=== PATIENT | male | born 1950 | race Caucasian/White ===

== ENCOUNTER 2017-09-26 12:21 | Inpatient (IN) | payer MEDICARE, OTHER ==
[~2017-09-26 12:21] MED LIST: AMIODARONE 150 MG INJ; AMIODARONE 900 MG INJ
[2017-09-26] MEDS: AMIODARONE 150MG/D5W BOLUS 100 ML IV ×2 (12:44→12:52)
[2017-09-26 12:57] LABS: ADD MAN DIFF? NO
[2017-09-26 13:01] LABS: WHITE BLOOD COUNT 15.2 10^3/ul (4.8-10.8)
[2017-09-26 13:01] LABS: ABNORMAL IP MESSAGE 1; BASOPHIL # 0.1 10^3/ul (0.0-0.1); BASOPHILS % 0.5 % (0.0-2.0); EOSINOPHILS # 0.1 10^3/ul (0.0-0.5); EOSINOPHILS % 0.9 % (0.0-7.0); HEMATOCRIT 41.6 % (42.0-52.0); LYMPHOCYTES # 4.5 10^3/ul (0.8-2.9); LYMPHOCYTES % 29.4 % (15.0-51.0); MEAN CORPUSCULAR HEMOGLOBIN 29.7 pg (29.0-33.0); MEAN CORPUSCULAR HGB CONC 33.7 g/dl (32.0-37.0); MEAN CORPUSCULAR VOLUME 88.1 fl (82.0-101.0); NEUTROPHIL # 8.5 10^3/ul (1.6-7.5); NEUTROPHILS % 55.9 % (39.0-77.0); PLATELET COUNT 260 10^3/UL (140-415); POSITIVE DIFF @See below; RED BLOOD COUNT 4.72 10^6/ul (4.70-6.10); RED CELL DISTRIBUTION WIDTH 13.8 % (11.5-14.5)
[2017-09-26 13:21] LABS: INR 0.99; PARTIAL THROMBOPLASTIN TIME 29.9 Sec (25.0-35.0); PROTIME 13.2 Sec (11.9-14.9)
[2017-09-26 13:23] LABS: ALANINE AMINOTRANSFERASE 21 IU/L (13-69); ALBUMIN 4.9 g/dl (3.3-4.9); ALBUMIN/GLOBULIN RATIO 1.48; ALKALINE PHOSPHATASE 96 IU/L (42-121); ANION GAP 24 (8-16); BILIRUBIN,INDIRECT 0.7 mg/dl (0-1.1); BILIRUBIN,TOTAL 0.7 mg/dl (0.2-1.3); BLOOD UREA NITROGEN 15 mg/dl (7-20); CALCIUM 9.3 mg/dl (8.4-10.2); CARBON DIOXIDE 20 mmol/L (21-31); CHLORIDE 98 mmol/L (97-110); CREATININE 1.27 mg/dl (0.61-1.24); GLUCOSE 167 mg/dl (70-220); SODIUM 139 mmol/L (135-144); TOTAL PROTEIN 8.2 g/dl (6.1-8.1)
[2017-09-26 13:24] LABS: MAGNESIUM 1.8 mg/dl (1.7-2.5)
[2017-09-26 13:43] LABS: ASPARTATE AMINO TRANSFERASE 32 IU/L (15-46)
[2017-09-26 13:47] LABS: POTASSIUM 2.6 mmol/L (3.5-5.1)
[2017-09-26 13:48] LABS: TROPONIN-I 0.636 ng/ml (0.00-0.12)
[2017-09-26] MEDS ORDERED: POTASSIUM CHLORIDE 50 ML IVPB (14:30)
[2017-09-26] MEDS: POTASSIUM CHLORIDE (SR) 20 MEQ TAB PO (15:02)
[2017-09-26] MEDS: POTASSIUM CHLORIDE 50 ML IVPB (15:02)
[2017-09-26] MEDS ORDERED: ACETAMINOPHEN 325 MG TAB PO (15:30)
[2017-09-26] MEDS ORDERED: ONDANSETRON 4 MG INJ IV ×2 (15:30→18:30)
[2017-09-26] MEDS: SOD CHLORIDE 0.9% 1,000 ML IV (16:29)
[2017-09-26] MEDS: MAGNESIUM SULFATE 2 GM/50 ML 50 ML IVPB (17:21)
[2017-09-26 19:44] LABS: MAGNESIUM 2.8 mg/dl (1.7-2.5)
[2017-09-26] MEDS: ATORVASTATIN 40 MG TAB PO (22:05)
[2017-09-26] MEDS: BENAZEPRIL 20 MG TAB PO (22:06)
[2017-09-26] MEDS: SPIRONOLACTONE 25 MG TAB PO (22:10)
[2017-09-26] MEDS: ASPIRIN 81 MG TAB PO (22:10)
[2017-09-26] MEDS: FUROSEMIDE 40 MG TAB PO (22:11)
[2017-09-26] MEDS: D5W-0.45 NACL + KCL 30 MEQ 1,000 ML IV (22:14)
[2017-09-26] MEDS: ENOXAPARIN 40 MG/0.4 ML SYG SC (22:48)
[2017-09-26] MEDS: AMIODARONE 900 MG in DEXTROSE 5% 482 ML IV (23:21)
[2017-09-27] MEDS: LEVOTHYROXINE 50 MCG TAB PO (05:43)
[2017-09-27 06:51] LABS: ADD MAN DIFF? NO
[2017-09-27 07:02] LABS: WHITE BLOOD COUNT 11.8 10^3/ul (4.8-10.8)
[2017-09-27 07:02] LABS: BASOPHIL # 0.1 10^3/ul (0.0-0.1); BASOPHILS % 0.4 % (0.0-2.0); EOSINOPHILS # 0.2 10^3/ul (0.0-0.5); EOSINOPHILS % 1.7 % (0.0-7.0); HEMATOCRIT 36.9 % (42.0-52.0); HEMOGLOBIN 12.7 g/dl (14.0-18.0); LYMPHOCYTES # 2.8 10^3/ul (0.8-2.9); LYMPHOCYTES % 23.9 % (15.0-51.0); MEAN CORPUSCULAR HEMOGLOBIN 30.2 pg (29.0-33.0); MEAN CORPUSCULAR HGB CONC 34.4 g/dl (32.0-37.0); MEAN CORPUSCULAR VOLUME 87.6 fl (82.0-101.0); MEAN PLATELET VOLUME 11.8 fl (7.4-10.4); MONOCYTE # 1.2 10^3/ul (0.3-0.9); MONOCYTES % 10.3 % (0.0-11.0); NEUTROPHIL # 7.5 10^3/ul (1.6-7.5); NEUTROPHILS % 63.4 % (39.0-77.0); PLATELET COUNT 189 10^3/UL (140-415); RED BLOOD COUNT 4.21 10^6/ul (4.70-6.10)
[2017-09-27 07:11] LABS: CHOL/HDL RATIO 5.3 RATIO; HDL CHOLESTEROL 46 mg/dl (30-78); LDL CHOLESTEROL,CALCULATED 174 mg/dl; TRIGLYCERIDES 140 mg/dl (0-149)
[2017-09-27 07:11] LABS: CHOLESTEROL 248 mg/dl (100-200)
[2017-09-27 07:13] LABS: ANION GAP 11 (8-16); BLOOD UREA NITROGEN 23 mg/dl (7-20); CALCIUM 8.6 mg/dl (8.4-10.2); CARBON DIOXIDE 25 mmol/L (21-31); CHLORIDE 102 mmol/L (97-110); CREATININE 1.28 mg/dl (0.61-1.24); GLUCOSE 146 mg/dl (70-220); POTASSIUM 3.7 mmol/L (3.5-5.1); SODIUM 134 mmol/L (135-144)
[2017-09-27] MEDS: ASPIRIN 81 MG TAB PO (09:13)
[2017-09-27] MEDS: FUROSEMIDE 40 MG TAB PO (09:13)
[2017-09-27] MEDS: SPIRONOLACTONE 25 MG TAB PO (09:14)
[2017-09-27] MEDS: BENAZEPRIL 20 MG TAB PO ×2 (09:14→20:30)
[2017-09-27] MEDS: POTASSIUM CHLORIDE (SR) 20 MEQ TAB PO (13:37)
[2017-09-27] MEDS: AMIODARONE 200 MG TAB PO ×2 (13:40→20:29)
[2017-09-27] MEDS: ATORVASTATIN 40 MG TAB PO (20:23)
[2017-09-27] MEDS: ENOXAPARIN 40 MG/0.4 ML SYG SC (20:26)
[2017-09-28 07:11] LABS: ADD MAN DIFF? NO
[2017-09-28 07:14] LABS: WHITE BLOOD COUNT 10.6 10^3/ul (4.8-10.8)
[2017-09-28 07:14] LABS: BASOPHILS % 0.4 % (0.0-2.0); EOSINOPHILS # 0.2 10^3/ul (0.0-0.5); EOSINOPHILS % 2.1 % (0.0-7.0); HEMATOCRIT 36.4 % (42.0-52.0); HEMOGLOBIN 12.4 g/dl (14.0-18.0); LYMPHOCYTES # 2.4 10^3/ul (0.8-2.9); LYMPHOCYTES % 22.6 % (15.0-51.0); MEAN CORPUSCULAR HEMOGLOBIN 30.1 pg (29.0-33.0); MEAN CORPUSCULAR HGB CONC 34.1 g/dl (32.0-37.0); MEAN CORPUSCULAR VOLUME 88.3 fl (82.0-101.0); MEAN PLATELET VOLUME 12.3 fl (7.4-10.4); MONOCYTE # 1.2 10^3/ul (0.3-0.9); MONOCYTES % 11.5 % (0.0-11.0); NEUTROPHIL # 6.7 10^3/ul (1.6-7.5); PLATELET COUNT 167 10^3/UL (140-415); RED BLOOD COUNT 4.12 10^6/ul (4.70-6.10); RED CELL DISTRIBUTION WIDTH 13.9 % (11.5-14.5)
[2017-09-28 07:53] LABS: ALANINE AMINOTRANSFERASE 33 IU/L (13-69); ALBUMIN 3.7 g/dl (3.3-4.9); ALBUMIN/GLOBULIN RATIO 1.37; ALKALINE PHOSPHATASE 69 IU/L (42-121); ANION GAP 13 (8-16); ASPARTATE AMINO TRANSFERASE 36 IU/L (15-46); BILIRUBIN,INDIRECT 0.3 mg/dl (0-1.1); BILIRUBIN,TOTAL 0.3 mg/dl (0.2-1.3); BLOOD UREA NITROGEN 24 mg/dl (7-20); CALCIUM 8.6 mg/dl (8.4-10.2); CARBON DIOXIDE 26 mmol/L (21-31); CHLORIDE 104 mmol/L (97-110); CREATININE 1.45 mg/dl (0.61-1.24); GLUCOSE 122 mg/dl (70-220); POTASSIUM 4.3 mmol/L (3.5-5.1); SODIUM 139 mmol/L (135-144); TOTAL PROTEIN 6.4 g/dl (6.1-8.1)
[2017-09-28] MEDS: AMIODARONE 200 MG TAB PO ×2 (08:49→21:08)
[2017-09-28] MEDS: SPIRONOLACTONE 25 MG TAB PO (08:49)
[2017-09-28] MEDS: FUROSEMIDE 20 MG TAB PO (08:50)
[2017-09-28] MEDS: ASPIRIN 81 MG TAB PO (08:51)
[2017-09-28] MEDS: BENAZEPRIL 20 MG TAB PO ×2 (08:51→21:03)
[2017-09-28] MEDS: ATORVASTATIN 40 MG TAB PO (21:02)
[2017-09-28] MEDS: ENOXAPARIN 40 MG/0.4 ML SYG SC (21:06)
[2017-09-29 06:21] LABS: ADD MAN DIFF? NO
[2017-09-29 06:26] LABS: WHITE BLOOD COUNT 9.6 10^3/ul (4.8-10.8)
[2017-09-29 06:26] LABS: BASOPHIL # 0.1 10^3/ul (0.0-0.1); BASOPHILS % 0.6 % (0.0-2.0); EOSINOPHILS # 0.3 10^3/ul (0.0-0.5); EOSINOPHILS % 3.3 % (0.0-7.0); HEMATOCRIT 38.5 % (42.0-52.0); HEMOGLOBIN 13.2 g/dl (14.0-18.0); LYMPHOCYTES # 2.5 10^3/ul (0.8-2.9); LYMPHOCYTES % 25.5 % (15.0-51.0); MEAN CORPUSCULAR HEMOGLOBIN 29.9 pg (29.0-33.0); MEAN CORPUSCULAR HGB CONC 34.3 g/dl (32.0-37.0); MEAN CORPUSCULAR VOLUME 87.1 fl (82.0-101.0); MEAN PLATELET VOLUME 12.1 fl (7.4-10.4); MONOCYTES % 10.4 % (0.0-11.0); NEUTROPHIL # 5.8 10^3/ul (1.6-7.5); PLATELET COUNT 169 10^3/UL (140-415); RED BLOOD COUNT 4.42 10^6/ul (4.70-6.10); RED CELL DISTRIBUTION WIDTH 13.6 % (11.5-14.5)
[2017-09-29 07:25] LABS: ALANINE AMINOTRANSFERASE 34 IU/L (13-69); ALBUMIN 4.1 g/dl (3.3-4.9); ALBUMIN/GLOBULIN RATIO 1.41; ALKALINE PHOSPHATASE 74 IU/L (42-121); ANION GAP 15 (8-16); ASPARTATE AMINO TRANSFERASE 25 IU/L (15-46); BLOOD UREA NITROGEN 26 mg/dl (7-20); CARBON DIOXIDE 23 mmol/L (21-31); CHLORIDE 105 mmol/L (97-110); CREATININE 1.35 mg/dl (0.61-1.24); GLUCOSE 124 mg/dl (70-220); POTASSIUM 4.3 mmol/L (3.5-5.1); SODIUM 139 mmol/L (135-144)
[2017-09-29 08:10] LABS: BILIRUBIN,INDIRECT 0.5 mg/dl (0-1.1); BILIRUBIN,TOTAL 0.5 mg/dl (0.2-1.3)
[2017-09-29] MEDS: ASPIRIN 81 MG TAB PO (08:56)
[2017-09-29] MEDS: SPIRONOLACTONE 25 MG TAB PO (08:56)
[2017-09-29] MEDS: AMIODARONE 200 MG TAB PO ×2 (08:57→20:41)
[2017-09-29] MEDS: BENAZEPRIL 20 MG TAB PO ×2 (08:57→20:42)
[2017-09-29] MEDS: ATORVASTATIN 40 MG TAB PO (20:27)
[2017-09-29] MEDS: ENOXAPARIN 40 MG/0.4 ML SYG SC (20:29)
[2017-09-30 06:29] LABS: ADD MAN DIFF? NO
[2017-09-30 06:36] LABS: WHITE BLOOD COUNT 8.2 10^3/ul (4.8-10.8)
[2017-09-30 06:36] LABS: BASOPHIL # 0.1 10^3/ul (0.0-0.1); BASOPHILS % 0.7 % (0.0-2.0); EOSINOPHILS # 0.3 10^3/ul (0.0-0.5); EOSINOPHILS % 3.9 % (0.0-7.0); HEMATOCRIT 37.1 % (42.0-52.0); HEMOGLOBIN 12.9 g/dl (14.0-18.0); LYMPHOCYTES # 2.3 10^3/ul (0.8-2.9); LYMPHOCYTES % 27.4 % (15.0-51.0); MEAN CORPUSCULAR HEMOGLOBIN 30.3 pg (29.0-33.0); MEAN CORPUSCULAR HGB CONC 34.8 g/dl (32.0-37.0); MEAN CORPUSCULAR VOLUME 87.1 fl (82.0-101.0); MEAN PLATELET VOLUME 12.4 fl (7.4-10.4); MONOCYTE # 0.9 10^3/ul (0.3-0.9); MONOCYTES % 10.3 % (0.0-11.0); NEUTROPHIL # 4.7 10^3/ul (1.6-7.5); NEUTROPHILS % 57.3 % (39.0-77.0); PLATELET COUNT 174 10^3/UL (140-415); RED BLOOD COUNT 4.26 10^6/ul (4.70-6.10); RED CELL DISTRIBUTION WIDTH 13.8 % (11.5-14.5)
[2017-09-30 06:53] LABS: INR 0.98; PROTIME 13.1 Sec (11.9-14.9)
[2017-09-30 06:54] LABS: PARTIAL THROMBOPLASTIN TIME 33.3 Sec (25.0-35.0)
[2017-09-30 07:01] LABS: TROPONIN-I 0.408 ng/ml (0.00-0.12)
[2017-09-30 07:05] LABS: ANION GAP 15 (8-16); BLOOD UREA NITROGEN 28 mg/dl (7-20); CALCIUM 8.9 mg/dl (8.4-10.2); CARBON DIOXIDE 23 mmol/L (21-31); CHLORIDE 106 mmol/L (97-110); CHOL/HDL RATIO 4.4 RATIO; CHOLESTEROL 196 mg/dl (100-200); CREATININE 1.41 mg/dl (0.61-1.24); GLUCOSE 116 mg/dl (70-220); HDL CHOLESTEROL 44 mg/dl (30-78); LDL CHOLESTEROL,CALCULATED 135 mg/dl; POTASSIUM 4.3 mmol/L (3.5-5.1); SODIUM 140 mmol/L (135-144); TRIGLYCERIDES 86 mg/dl (0-149)
[2017-09-30] MEDS: ASPIRIN 81 MG TAB PO (08:19)
[2017-09-30] MEDS: SPIRONOLACTONE 25 MG TAB PO (08:19)
[2017-09-30] MEDS: BENAZEPRIL 20 MG TAB PO ×2 (08:20→21:22)
[2017-09-30] MEDS: AMIODARONE 200 MG TAB PO ×2 (08:20→21:21)
[2017-09-30] MEDS ORDERED: HEPARIN 1000 UNITS/ML 10 ML INJ (10:36)
[2017-09-30] MEDS ORDERED: NITROGLYCERIN (IC) 100 MCG/ML INJ (10:36)
[2017-09-30] MEDS ORDERED: FENTAnyl 50 MCG/ML VIAL (10:36)
[2017-09-30] MEDS ORDERED: MIDAZOLAM 1 MG/ML 2 ML INJ (10:36)
[2017-09-30] MEDS ORDERED: IODIXANOL LOCM 100 ML BTL (10:36)
[2017-09-30] MEDS ORDERED: SOD CHLORIDE 0.9% 500 ML (11:49)
[2017-09-30] MEDS ORDERED: VERAPAMIL 5 MG INJ (11:49)
[2017-09-30] MEDS ORDERED: morphine 2 MG INJ IV (12:30)
[2017-09-30] MEDS ORDERED: AL HYDROX/MG HYDROX/SIMETH 30 ML CUP PO (12:30)
[2017-09-30] MEDS ORDERED: ACETAMINOPHEN 325 MG TAB PO (12:30)
[2017-09-30] MEDS ORDERED: ONDANSETRON 4 MG INJ IV (12:30)
[2017-09-30] MEDS: SOD CHLORIDE 0.9% 1,000 ML IV (12:35)
[2017-09-30] MEDS: ATORVASTATIN 40 MG TAB PO (21:20)
[2017-10-01 08:43] LABS: ADD MAN DIFF? NO
[2017-10-01 08:57] LABS: WHITE BLOOD COUNT 9.6 10^3/ul (4.8-10.8)
[2017-10-01 08:57] LABS: BASOPHIL # 0.1 10^3/ul (0.0-0.1); BASOPHILS % 0.6 % (0.0-2.0); EOSINOPHILS # 0.2 10^3/ul (0.0-0.5); EOSINOPHILS % 2.2 % (0.0-7.0); HEMATOCRIT 37.7 % (42.0-52.0); HEMOGLOBIN 12.8 g/dl (14.0-18.0); LYMPHOCYTES # 1.9 10^3/ul (0.8-2.9); LYMPHOCYTES % 19.7 % (15.0-51.0); MEAN CORPUSCULAR HEMOGLOBIN 30.3 pg (29.0-33.0); MEAN CORPUSCULAR VOLUME 89.3 fl (82.0-101.0); MEAN PLATELET VOLUME 12.8 fl (7.4-10.4); MONOCYTE # 0.9 10^3/ul (0.3-0.9); MONOCYTES % 9.6 % (0.0-11.0); NEUTROPHIL # 6.5 10^3/ul (1.6-7.5); NEUTROPHILS % 67.6 % (39.0-77.0); PLATELET COUNT 181 10^3/UL (140-415); RED BLOOD COUNT 4.22 10^6/ul (4.70-6.10); RED CELL DISTRIBUTION WIDTH 13.8 % (11.5-14.5)
[2017-10-01] MEDS: SPIRONOLACTONE 25 MG TAB PO (08:58)
[2017-10-01] MEDS: ASPIRIN 81 MG TAB PO (08:59)
[2017-10-01] MEDS: AMIODARONE 200 MG TAB PO ×2 (08:59→20:26)
[2017-10-01] MEDS: BENAZEPRIL 20 MG TAB PO (09:00)
[2017-10-01 09:17] LABS: ANION GAP 13 (8-16); BLOOD UREA NITROGEN 28 mg/dl (7-20); CARBON DIOXIDE 26 mmol/L (21-31); CHLORIDE 105 mmol/L (97-110); CREATININE 1.45 mg/dl (0.61-1.24); GLUCOSE 124 mg/dl (70-220); POTASSIUM 4.4 mmol/L (3.5-5.1); SODIUM 140 mmol/L (135-144)
[2017-10-01 09:23] LABS: TROPONIN-I 0.087 ng/ml (0.00-0.12)
[2017-10-01] MEDS: CLOPIDOGREL 75 MG TAB PO (16:53)
[2017-10-01] MEDS: ATORVASTATIN 40 MG TAB PO (20:21)
[2017-10-01] MEDS: BENAZEPRIL 10 MG TAB PO (20:24)
[2017-10-02 07:48] LABS: ANION GAP 14 (8-16); BLOOD UREA NITROGEN 23 mg/dl (7-20); CALCIUM 9.1 mg/dl (8.4-10.2); CARBON DIOXIDE 21 mmol/L (21-31); CHLORIDE 107 mmol/L (97-110); GLUCOSE 120 mg/dl (70-220); POTASSIUM 4.2 mmol/L (3.5-5.1); SODIUM 138 mmol/L (135-144)
[2017-10-02] MEDS: BENAZEPRIL 10 MG TAB PO (08:32)
[2017-10-02] MEDS: AMIODARONE 200 MG TAB PO (08:32)
[2017-10-02] MEDS: CLOPIDOGREL 75 MG TAB PO (08:32)
[2017-10-02] MEDS: ASPIRIN 81 MG TAB PO (08:33)
[2017-10-02] MEDS: SPIRONOLACTONE 25 MG TAB PO (08:33)
== END 2017-10-02 17:20 | disposition home or self-care (01) | DRG 280 ==
LOC: TEL 09-29 14:03 → E/R 12:21 → TEL 15:29
PROC: 4A023N7 Measurement of Cardiac Sampling and Pressure, Left Heart, Percutaneous Approach (ICD-10-PCS; principal; 2017-09-30 09:30)
PROC: B211YZZ Fluoroscopy of Multiple Coronary Arteries using Other Contrast (ICD-10-PCS; 2017-09-30 09:30)
DX: T82.199A Other mechanical complication of unspecified cardiac device, initial encounter (principal); I50.33 Acute on chronic diastolic (congestive) heart failure; I21.4 Non-ST elevation (NSTEMI) myocardial infarction; I47.2 Ventricular tachycardia; N17.9 Acute kidney failure, unspecified; I42.0 Dilated cardiomyopathy; I48.0 Paroxysmal atrial fibrillation; E11.8 Type 2 diabetes mellitus with unspecified complications; I11.0 Hypertensive heart disease with heart failure; I25.82 Chronic total occlusion of coronary artery; E87.5 Hyperkalemia; E78.5 Hyperlipidemia, unspecified; E03.9 Hypothyroidism, unspecified; F12.90 Cannabis use, unspecified, uncomplicated; G89.29 Other chronic pain; I25.10 Atherosclerotic heart disease of native coronary artery without angina pectoris; I25.5 Ischemic cardiomyopathy; Z91.14 Patient's other noncompliance with medication regimen; Z95.810 Presence of automatic (implantable) cardiac defibrillator; Z87.891 Personal history of nicotine dependence; Z79.82 Long term (current) use of aspirin
CPT/HCPCS: 36415; 71045; 80048; 80053; 80061; 83735; 84443; 84484; 85025; 85610; 85730; 93005; 93306; 93454; 96374; 96375; 96376; 99291-25